=== PATIENT | female | born 1990 | race Hispanic/Latino ===

== ENCOUNTER 2023-11-30 17:12 | Emergency (ER) | payer OTHER ==
[2023-11-30] MEDS ORDERED: Cyclobenzaprine 10 MG TAB ONE (18:08)
[2023-11-30] MEDS ORDERED: Ketorolac Tromethamine 30 MG (1 mL) VIAL ONE (18:08)
== END 2023-11-30 20:30 | disposition home or self-care (01) ==
LOC: ERS 17:12
DX: R52 Pain, unspecified (principal); G40.909 Epilepsy, unspecified, not intractable, without status epilepticus; F17.290 Nicotine dependence, other tobacco product, uncomplicated; V49.9XXA Car occupant (driver) (passenger) injured in unspecified traffic accident, initial encounter; W22.11XA Striking against or struck by driver side automobile airbag, initial encounter
CPT/HCPCS: 70450; 72125; 96372; J1885